=== PATIENT | male | born 1935 | race Caucasian/White ===

== ENCOUNTER 2017-10-19 04:09 | Observation (INO) | payer OTHER ==
[2017-10-19] VITALS (7 sets, daily range): BP systolic 169–203; BP diastolic 82–95; PULSE 65–68; TEMP 36.5–36.7; O2SAT 95–98; Ht 180.3 cm; Wt 98.4 kg
[~2017-10-19] VITALS: Ht 180.3 cm; Wt 98.4 kg
[~2017-10-19 04:09] MED LIST: ASPI81TA28 PO; PANT40TA PO; RANI150T85 PO; VALS160T58 PO
[2017-10-19] MEDS ORDERED: ASPIRIN 81 MG CHEW PO STA (04:18)
[2017-10-19] MEDS ORDERED: NITROGLYCERIN 0.4 MG SL PER TAB CHARGE SL PRN ×2 (04:30→05:45)
[2017-10-19 04:35] LABS: BASO % 0.4 %; BASO ABS # 0.03 K/uL (0-0.2); EOS % 5.2 %; EOS ABS # 0.42 K/uL (0-0.5); HEMATOCRIT 42.8 % (42-52); HEMOGLOBIN 14.7 g/dL (14.0-18.0); IG# 0.02 K/uL (0.00-0.02); LYMPH % 24.1 %; LYMPH ABS # 1.95 K/uL (1.2-3.4); MEAN CELL VOLUME 89.2 fL (80-100); MEAN CORPUSCULAR HEMOGLOBIN 30.6 pg (25-34); MEAN CORPUSCULAR HGB CONC 34.3 g/dl (32-36); MONO % 7.4 %; NEUT % 62.7 %; NEUT ABS # 5.08 K/uL (1.4-6.5); PLATELET COUNT 203 K/uL (130-400); RED CELL DISTRIBUTION WIDTH CV 12.9 % (11.5-14.5)
--- NOTE | 2017-10-19 04:38 | EMERGENCY ROOM VISIT NOTE ---
History Report prepared by Eliezer: Faith Juan Under the Supervision of: Dr. Pamela Carrillo M.D. First contact with patient: 04:12 Chief Complaint: CHEST PAIN Stated Complaint: CHEST PAIN History of Present Illness The patient is an 82 year old male who presents to the Emergency Room with complaints of persistent left side chest pain since 214 this morning. He states that the chest pain woke him up he denies pain radiating to his jaw, neck , or arms. He took his blood pressure medication at 2100 last night. He had a grilled chicken salad for dinner at a restaurant last night. He states that he had a cookie. He had two baby Aspirin before coming to the ED. He states the pain is tolerable. He denies any history of IN. He has a family history of CAD. Per , the patient's sister had an IN. She states she is five years younger than the patient. She reports they gave the sister NTG and she stopped breathing due to an adverse reaction. He denies any history of smoking. He denies any history of DM, though he states that his blood glucose has been elevated. Per , the patient's fasting glucose was 114. He denies any shortness of breath or sweating. He has a history of bladder cancer, vocal cord cancer, CKD, melanoma, HTN, glucose intolerance, and GERD. Source of History: patient, spouse/significant other Onset: 214 this morning Position: chest Symptom Intensity: tolerable Timing: other (persistent) Associated Symptoms: No diaphoresis (no sweating), No SOB Review of Systems See HPI for pertinent positives & negatives. A total of 10 systems reviewed and were otherwise negative. Past Medical & Surgical Medical Problems: (1) Bladder cancer (2) Chest pain in adult (3) CKD (chronic kidney disease) (4) GERD (gastroesophageal reflux disease) (5) Glucose intolerance (6) HTN (hypertension) (7) Melanoma (8) UTI (urinary tract infection) (9) Vocal cord cancer Family History Heart disease Social History Smoking Status: Never Smoker Smokeless Tobacco Use: No Drug Use: none Marital Status: Housing Status: lives with significant other Occupation Status: retired Current/Historical Medications Scheduled Aspirin (Aspirin Ec), 81 MG PO DAILY Pantoprazole (Protonix), 40 MG PO DAILY Ranitidine (Zantac), 150 MG PO DAILY Valsartan/Hctz (Diovan Hct 160MG/12.5MG), 1 TAB PO DAILY Allergies Coded Allergies: BEE STING (Unverified Allergy, Unknown, ANAPHYLAXIS, 10/19/17) Penicillins (Unverified Allergy, Unknown, HIVES, 10/19/17) Physical Exam Vital Signs Date Time Temp Pulse Resp B/P (MAP) Pulse Ox O2 Delivery O2 Flow Rate FiO2 10/19/17 06:00 70 16 161/80 96 Room Air 10/19/17 05:30 68 16 149/84 96 Room Air 10/19/17 04:55 67 18 153/86 94 Room Air 10/19/17 04:40 78 16 119/73 95 Room Air 10/19/17 04:37 84 16 118/80 94 10/19/17 04:32 74 20 176/97 94 Room Air 10/19/17 04:20 73 10/19/17 04:13 37.0 78 19 217/126 96 Room Air Physical Exam Vital signs reviewed. General: Well-appearing, in no significant distress. HEENT: No scleral icterus, PERRLA, neck supple. Atraumatic. Cardiovascular: Regular rate and rhythm, no extra sounds. Pulmonary: Clear to auscultation bilaterally, normal work of breathing. Abdomen: Soft, nontender, nondistended, positive bowel sounds. Musculoskeletal: Atraumatic, no peripheral edema. Neurologic: Patient awake alert and oriented x 3 Skin: Warm, dry, no rash Medical Decision & Procedures ER Provider Diagnostic Interpretation: Radiology results as stated below per my review and interpretation: CHEST XR: No focal infiltrate. No lung consolidation. No failure. Laboratory Results 10/19/17 04:15 Red Blood Count 4.80, Mean Corpuscular Volume 89.2, Mean Corpuscular Hemoglobin 30.6, Mean Corpuscular Hemoglobin Concent 34.3, Mean Platelet Volume 10.0, Neutrophils (%) (Auto) 62.7, Lymphocytes (%) (Auto) 24.1, Monocytes (%) (Auto) 7.4, Eosinophils (%) (Auto) 5.2, Basophils (%) (Auto) 0.4, Neutrophils # (Auto) 5.08, Lymphocytes # (Auto) 1.95, Monocytes # (Auto) 0.60, Eosinophils # (Auto) 0.42, Basophils # (Auto) 0.03 10/19/17 04:15 Test 10/19/17 04:15 10/19/17 04:30 White Blood Count 8.10 K/uL (4.8-10.8) Red Blood Count 4.80 M/uL (4.7-6.1) Hemoglobin 14.7 g/dL (14.0-18.0) Hematocrit 42.8 % (42-52) Mean Corpuscular Volume 89.2 fL (80-100) Mean Corpuscular Hemoglobin 30.6 pg (25-34) Mean Corpuscular Hemoglobin Concent 34.3 g/dl (32-36) Platelet Count 203 K/uL (130-400) Mean Platelet Volume 10.0 fL (7.4-10.4) Neutrophils (%) (Auto) 62.7 % Lymphocytes (%) (Auto) 24.1 % Monocytes (%) (Auto) 7.4 % Eosinophils (%) (Auto) 5.2 % Basophils (%) (Auto) 0.4 % Neutrophils # (Auto) 5.08 K/uL (1.4-6.5) Lymphocytes # (Auto) 1.95 K/uL (1.2-3.4) Monocytes # (Auto) 0.60 K/uL (0.11-0.59) Eosinophils # (Auto) 0.42 K/uL (0-0.5) Basophils # (Auto) 0.03 K/uL (0-0.2) RDW Standard Deviation 42.0 fL (36.4-46.3) RDW Coefficient of Variation 12.9 % (11.5-14.5) Immature Granulocyte % (Auto) 0.2 % Immature Granulocyte # (Auto) 0.02 K/uL (0.00-0.02) Prothrombin Time 11.0 SECONDS (9.0-12.0) Prothromb Time International Ratio 1.0 (0.9-1.1) Activated Partial Thromboplast Time 24.7 SECONDS (21.0-31.0) Partial Thromboplastin Ratio 1.0 Anion Gap 6.0 mmol/L (3-11) Est Creatinine Clear Calc Drug Dose 52.1 ml/min Estimated GFR () 56.8 Estimated GFR (Non- 49.0 BUN/Creatinine Ratio 16.4 (10-20) Calcium Level 8.3 mg/dl (8.5-10.1) Total Bilirubin 0.5 mg/dl (0.2-1) Direct Bilirubin 0.1 mg/dl (0-0.2) Aspartate Amino Transf (AST/SGOT) 17 U/L (15-37) Alanine Aminotransferase (ALT/SGPT) 23 U/L (12-78) Alkaline Phosphatase 90 U/L (45-117) Troponin I 0.047 ng/ml (0-0.045) Total Protein 6.8 gm/dl (6.4-8.2) Albumin 3.7 gm/dl (3.4-5.0) Bedside Troponin I 0.040 ng/ml (0-0.045) Laboratory results per my review. Medications Administered Medications (Trade) Dose Ordered Sig/Jessie Route Start Time Stop Time Status Last Admin Dose Admin Aspirin (Aspirin Chew) 324 mg NOW STAT PO 10/19/17 04:18 10/19/17 04:19 DC 10/19/17 04:31 162 MG Nitroglycerin (Nitrostat Tab) 0.4 mg Q5M PRN SL 10/19/17 04:30 11/18/17 04:29 10/19/17 04:32 0.4 MG Nitroglycerin (Nitroglycerin 2% Oint) 0.5 inch NOW STAT EXT 10/19/17 04:41 10/19/17 04:43 DC 10/19/17 04:48 0.5 INCH Hydralazine HCl (HydrALAZINE INJ) 5 mg NOW STAT IV. 10/19/17 05:35 10/19/17 05:36 DC 10/19/17 05:49 5 MG ECG Per My Interpretation Indication: chest pain Rate (beats per minute): 81 Rhythm: sinus rhythm Findings: 1st degree AV block, Q waves (Anterior), no acute ischemic change, left axis deviation, no ectopy, other (Previous septal infarct ) ED Course 0418: Past medical records reviewed. The patient was evaluated in room A2. A complete history and physical examination was performed. 0418: Ordered Aspirin 324 mg PO 0430: Ordered Nitroglycerin 0.4 mg SL 0441: Ordered Nitroglycerin 0.5 inch EXT 0533: I reassessed the patient at this time. He is feeling better and resting comfortably. I discussed the results and treatment plan with the patient. I answered all pertaining questions that he had. He expressed understanding and verbalized agreement. The patient will be further evaluated. 0535: Ordered Hydralazine HCl 5 mg IV 0545: I spoke with MACHELLE Flores hospitalist. We discussed the patient's case. The patient will be evaluated by the [facility] for further management. Medical Decision Differential diagnoses includes acute coronary syndrome, pulmonary embolus, aortic dissection, musculoskeletal pain, pneumonia, pleural effusion, pneumothorax, gastritis, peptic ulcer disease. This patient was evaluated and appeared to be in no significant distress. Patient complained of left-sided pain that sometimes increases in intensity. There is no radiation of the pain at this time. Patient is noted to be markedly hypertensive. He was given aspirin 162 mg p.o. as he had taken 2 baby aspirin prior to arrival. He was given a sublingual nitroglycerin with significant improvement in his blood pressure. 0.5 inches of nitroglycerin paste was applied to the anterior chest wall. EKG reveals Q waves but no evidence of acute ischemia. Shortly thereafter the patient's blood pressure began to creep back up. He was given 5 mg of IV hydralazine. Nursing staff was advised to remove the nitroglycerin paste if the blood pressure falls below 100 systolic. Chest x-ray was obtained and is clear to my interpretation. Patient's troponin is 0.047. Patient was educated to my findings. I recommended hospitalization for further management. Patient is aware of the plan and agrees. Medication Reconcilliation Current Medication List: was personally reviewed by me Blood Pressure Screening Patient's blood pressure: Elevated blood pressure monitored by hospitalist Consults Time Called: 0540 Consulting Physician: MACHELLE Flores hospitalist I spoke with MACHELLE Flores hospitalist. We discussed the patient's case. The patient will be evaluated by the [facility] for further management. Impression Primary Impression: Elevated troponin Additional Impressions: Chest pain HTN (hypertension) Scribe Attestation The scribe's documentation has been prepared under my direction and personally reviewed by me in its entirety. I confirm that the note above accurately reflects all work, treatment, procedures, and medical decision making performed by me. Departure Information Dispostion Being Evaluated By Hospitalist Referrals No Doctor, Assigned (PCP) Patient Instructions My [facility] Problem Qualifiers
[2017-10-19] MEDS ORDERED: NITROGLYCERIN 2% OINTMENT 30GM TUBE EXT STA (04:41)
[2017-10-19 05:01] LABS: ALBUMIN 3.7 gm/dl (3.4-5.0); CALCIUM 8.3 mg/dl (8.5-10.1); CREATININE 1.34 mg/dl (0.60-1.40); POTASSIUM 4.1 mmol/L (3.5-5.1)
[2017-10-19 05:11] LABS: TOTAL PROTEIN 6.8 gm/dl (6.4-8.2)
[2017-10-19] MEDS ORDERED: HydrALAZINE HCL 20 MG/ML VIAL IV. STA (05:35)
--- NOTE | 2017-10-19 05:44 | History and Physical ---
History & Physical Date & Time of Service: Oct 19, 2017 at 05:38 Chief Complaint: Chest Pain Primary Care Physician: No Doctor, Assigned History of Present Illness Source: patient, hospital records This is an 80-year-old male with a history of bladder CA, vocal cord CA, CKD II- III, cystectomy and ileal conduit. The pt woke from sleep with central CP. He describes the pain as moderate and denies radiation, SOB, nausea/vomiting, diaphoresis. He denies a history of a previous WA, however, he may have had nonocclusive CAD on a catheterization over 5 years ago. Initial POC trop is elevated - lab confirmation is borderline. There are no acute ischemic changes on EKG. SBP was elevated at 200 on arrival to the ER. Past Medical/Surgical History PAST MEDICAL HISTORY: 1. Bladder CA with 3 total surgeries including cystectomy and ileal conduit ultimately. He had radiation therapy but no chemotherapy. 2. The patient states that in 2013, he was admitted 5 times 4 recurrent UTIs, but has not had issues since then. 3. Vocal cord cancer. The patient had a resection followed by radiation but no chemotherapy. 4. Melanoma on his scalp resected with Mohs surgery. 5. CKD II-III 6. Hypertension. 7. Glucose intolerance. 8. GERD. PAST SURGICAL HISTORY: 1. Appendectomy. 2. Hernia repair x 5. 3. Cholecystectomy. 4. He has had a total of 5 eye surgeries including cataracts and periorbital muscle surgery. 5. Bladder resection and cystectomy as above. Family History Heart disease Both parents at an advanced age - cause not known. Father had a history of CAD/WA. 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[facility] - visiting his cabin in the [facility] Smoking Status: Never Smoker Smokeless Tobacco Use: No Drug Use: none Marital Status: Occupational Status: retired Allergies Coded Allergies: BEE STING (Unverified Allergy, Unknown, ANAPHYLAXIS, 10/19/17) Penicillins (Unverified Allergy, Unknown, HIVES, 10/19/17) Home Medications Scheduled Aspirin (Aspirin Ec), 81 MG PO DAILY Pantoprazole (Protonix), 40 MG PO DAILY Ranitidine (Zantac), 150 MG PO DAILY Valsartan/Hctz (Diovan Hct 160MG/12.5MG), 1 TAB PO DAILY Review of Systems Constitutional: No fever, No chills, No sweats Eyes: No worsening of vision ENT: No hearing loss, No unusual epistaxis, No nasal symptoms Respiratory: No cough, No sputum, No wheezing Cardiovascular: + chest pain, No orthopnea, No PND Abdomen: No pain, No nausea, No vomiting Musculoskeletal: No joint pain Genitourinary - Male: No hematuria, No dysuria Neurologic: No memory loss, No paralysis, No weakness Psychiatric: No depression symptoms Endocrine: No fatigue Hematologic / Lymphatic: No abnormal bleeding/bruising Integumentary: No rash Allergic / Immunologic: No environmental allergies Physical Exam Vital Signs Date Time Temp Pulse Resp B/P (MAP) Pulse Ox O2 Delivery O2 Flow Rate FiO2 10/19/17 04:55 67 18 153/86 94 Room Air 10/19/17 04:40 78 16 119/73 95 Room Air 10/19/17 04:37 84 16 118/80 94 10/19/17 04:32 74 20 176/97 94 Room Air 10/19/17 04:20 73 10/19/17 04:13 37.0 78 19 217/126 96 Room Air General Appearance: WD/WN, no apparent distress Head: normocephalic Eyes: normal inspection ENT: normal ENT inspection, pharynx normal, + pertinent finding (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 ) Neck: supple, no JVD Respiratory/Chest: chest non-tender, lungs clear, normal breath sounds Cardiovascular: regular rate, rhythm, no edema, no gallop Abdomen/GI: normal bowel sounds, non tender, soft Back: normal inspection, no CVA tenderness Extremities/Musculoskelatal: normal inspection, no calf tenderness, normal capillary refill Neurologic/Psych: high court justice II-XII nml as tested, no motor/sensory deficits, alert, oriented x 3 Skin: normal color Diagnostics Laboratory Results Results Past 24 Hours Test 10/19/17 04:15 10/19/17 04:30 Range/Units White Blood Count 8.10 4.8-10.8 K/uL Red Blood Count 4.80 4.7-6.1 M/uL Hemoglobin 14.7 14.0-18.0 g/dL Hematocrit 42.8 42-52 % Mean Corpuscular Volume 89.2 80-100 fL Mean Corpuscular Hemoglobin 30.6 25-34 pg Mean Corpuscular Hemoglobin Concent 34.3 32-36 g/dl Platelet Count 203 130-400 K/uL Mean Platelet Volume 10.0 7.4-10.4 fL Neutrophils (%) (Auto) 62.7 % Lymphocytes (%) (Auto) 24.1 % Monocytes (%) (Auto) 7.4 % Eosinophils (%) (Auto) 5.2 % Basophils (%) (Auto) 0.4 % Neutrophils # (Auto) 5.08 1.4-6.5 K/uL Lymphocytes # (Auto) 1.95 1.2-3.4 K/uL Monocytes # (Auto) 0.60 0.11-0.59 K/uL Eosinophils # (Auto) 0.42 0-0.5 K/uL Basophils # (Auto) 0.03 0-0.2 K/uL RDW Standard Deviation 42.0 36.4-46.3 fL RDW Coefficient of Variation 12.9 11.5-14.5 % Immature Granulocyte % (Auto) 0.2 % Immature Granulocyte # (Auto) 0.02 0.00-0.02 K/uL Sodium Level 142 136-145 mmol/L Potassium Level 4.1 3.5-5.1 mmol/L Chloride Level 108 98-107 mmol/L Carbon Dioxide Level 28 21-32 mmol/L Anion Gap 6.0 3-11 mmol/L Blood Urea Nitrogen 22 7-18 mg/dl Creatinine 1.34 0.60-1.40 mg/dl Est Creatinine Clear Calc Drug Dose 52.1 ml/min Estimated GFR () 56.8 Estimated GFR (Non- 49.0 BUN/Creatinine Ratio 16.4 10-20 Random Glucose 121 70-99 mg/dl Calcium Level 8.3 8.5-10.1 mg/dl Total Bilirubin 0.5 0.2-1 mg/dl Direct Bilirubin 0.1 0-0.2 mg/dl Aspartate Amino Transf (AST/SGOT) 17 15-37 U/L Alanine Aminotransferase (ALT/SGPT) 23 12-78 U/L Alkaline Phosphatase 90 45-117 U/L Troponin I 0.047 0-0.045 ng/ml Total Protein 6.8 6.4-8.2 gm/dl Albumin 3.7 3.4-5.0 gm/dl Bedside Troponin I 0.040 0-0.045 ng/ml EKG Sinus, 1st degree AV - ant Q wvs - no ST elevation or depressions Impression Assessment and Plan This is an 80-year-old male with a history of bladder CA, vocal cord CA, CKD II- III, cystectomy and ileal conduit. The pt woke from sleep with central CP. He describes the pain as moderate and denies radiation, SOB, nausea/vomiting, diaphoresis. He denies a history of a previous WA, however, he may have had nonocclusive CAD on a catheterization over 5 years ago. Initial POC trop is elevated - lab confirmation is borderline. There are no acute ischemic changes on EKG. SBP was elevated at 200 on arrival to the ER. 1) CP - borderline trop. The pt will be fully anticoagulated and placed on ASA , a Statin and a B ishmael. We have ordered an AM echo and consulted cardiology. 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 Improved with IV Labetalol in ER. We have continued his Valsartan/HCTZ and have added TID Metoprolol 3) CKD - renal function is at baseline. Full code - Heparin prophylaxis Total time for this admit including review of labs, meds, imaging, records - discussion with pt and ER attending - 35 min Resuscitation Status VTE Prophylaxis Will order VTE Prophylaxis: Yes
[2017-10-19] MEDS ORDERED: MoRPHine SULFATE 2 MG/ML CARP IV PRN (05:45)
[2017-10-19] MEDS ORDERED: MAGNESIUM HYDROXIDE SUSP 30 ML UDC PO PRN (05:45)
[2017-10-19] MEDS ORDERED: ONDANSETRON INJ 2 MG/ML 2 ML VIAL IV PRN (05:45)
[2017-10-19] MEDS ORDERED: ACETAMINOPHEN 325 MG TAB PO PRN (05:45)
[2017-10-19] MEDS ORDERED: ALUMINUM/MAGNESIUM/SIMETH (MAALOX MAX) 30 ML UDC PO PRN (05:45)
[2017-10-19] MEDS ORDERED: HEPARIN 25000 UNIT/500 ML D5W ONE (05:58)
[2017-10-19] MEDS ORDERED: HEPARIN SOD 5000 UNIT/0.5 ML CARP ONE (05:58)
[2017-10-19 06:14] LABS: PTT PATIENT 24.7 SECONDS (21.0-31.0)
--- NOTE | 2017-10-19 06:39 | DIAGNOSTIC IMAGING REPORT ---
CHEST ONE VIEW PORTABLE CLINICAL HISTORY: Left-sided chest pain. COMPARISON STUDY: Chest radiograph February 24, 2016. FINDINGS: A calcified 7 mm right upper lung nodule is noted. This is unchanged and represents a granuloma. No pneumothorax or pleural effusion is present. Minimal left basilar opacity favors atelectasis or scarring. There is no consolidation to suggest pneumonia and is no evidence for pulmonary edema. Cardiomediastinal silhouette is unremarkable. IMPRESSION: No acute cardiopulmonary findings. Electronically signed by: Junaid Cee M.D. 10/19/2017 6:38 AM Dictated Date/Time: 10/19/2017 6:37 AM
[2017-10-19] MEDS ORDERED: IV FLUIDS COMPLETED PRN (06:45)
[2017-10-19] MEDS ORDERED: HEPARIN 25,000 UNIT/500ML D5W 500 ML IV SCH (07:15)
[2017-10-19 07:28] LABS: HEMATOCRIT 42.1 % (42-52); HEMOGLOBIN 14.9 g/dL (14.0-18.0); MEAN CELL VOLUME 88.4 fL (80-100); MEAN CORPUSCULAR HEMOGLOBIN 31.3 pg (25-34); MEAN CORPUSCULAR HGB CONC 35.4 g/dl (32-36); MEAN PLATELET VOLUME 10.5 fL (7.4-10.4); PLATELET COUNT 201 K/uL (130-400); RED CELL DISTRIBUTION WIDTH CV 12.8 % (11.5-14.5); RED CELL DISTRIBUTION WIDTH SD 41.1 fL (36.4-46.3); WHITE BLOOD COUNT 7.54 K/uL (4.8-10.8)
[2017-10-19 07:52] LABS: INR 1.1 (0.9-1.1)
[2017-10-19 08:06] LABS: PTT PATIENT 171.8 SECONDS (21.0-31.0)
[2017-10-19] MEDS ORDERED: HYDROCHLOROTHIAZIDE 25 MG TAB PO SCH (09:00)
[2017-10-19] MEDS ORDERED: ASPIRIN 81 MG ECTAB PO SCH (09:00)
[2017-10-19] MEDS ORDERED: VALSARTAN 80 MG TAB PO SCH (09:00)
[2017-10-19] MEDS ORDERED: METOPROLOL TARTRATE 25 MG TAB PO SCH (09:00)
[2017-10-19] MEDS ORDERED: RANITIDINE HCL 150 MG TAB PO SCH (09:00)
[2017-10-19] MEDS ORDERED: ATORVASTATIN 20 MG TAB PO SCH (09:00)
[2017-10-19] MEDS ORDERED: PANTOprazole SOD 40 MG TAB PO SCH (09:00)
[2017-10-19] MEDS ORDERED: VALSARTAN/HCTZ 160/12.5 MG TAB PO SCH (09:00)
[2017-10-19 09:45] LABS: PTT PATIENT 92.4 SECONDS (21.0-31.0)
--- NOTE | 2017-10-19 10:11 | ECHOCARDIOGRAM REPORT ---
*NOTICE TO RECEIVING DEMOCRAT AGENCY This information is strictly Confidential and protected under [place] law. [place] law prohibits you from making any further disclosure of this information unless further disclosure is expressly permitted by the written consent of the person to whom it pertains or is authorized by law. A general authorization for the release of medical or other information is not sufficient for this purpose. Hospital accepts no responsibility if the information is made available to any other person, INCLUDING THE PATIENT. Interpretation Summary * Name: BENITO GARVIN Study Date: 10/19/2017 06:39 AM BP: 203/92 mmHg * Patient Location: C.2T\S\E219\S\1 HR: 73 * : 1935 (M/d/yyyy) Gender: Male Height: 72 in * Age: 82 yrs Ethnicity: CA Weight: 220 lb * Ordering Physician: Lavon Horn * Referring Physician: Self, Referred * Performed By: Lashay Quezada RCS * * Reason For Study: ELEVATED TROPONIN * BSA: 2.2 m2 * -- Conclusions -- * Left ventricular systolic function is normal. * No regional wall motion abnormalities noted. * Ejection Fraction = 55-60%. * There is mild concentric left ventricular hypertrophy. * Grade I diastolic dysfunction, (abnormal relaxation pattern). * No significant valvular pathology. Procedure Details * A complete two-dimensional transthoracic echocardiogram was performed (2D, M-mode, Doppler and color flow Doppler). * The study was technically difficult. * A contrast injection of Definity was performed to improve assessment of LV function. * Contrast was injected into an intravenous site in the left arm. * One vial of Definity ultrasound contrast was diluted in normal saline to a total volume of 10 ml. A total of '3' ml of solution was administered during imaging. * Lot # [id number] of Definity utilized for procedure. * Expiration date OCT 08. * The attending nurse who injected the contrast agent was ABHILASH GRANDA, RN. Left Ventricle * The left ventricle is normal in size. * There is mild concentric left ventricular hypertrophy. * Left ventricular systolic function is normal. * Ejection Fraction = 55-60%. * No regional wall motion abnormalities noted. Right Ventricle * The right ventricle is not well visualized. * The right ventricular systolic function is normal as assessed by tricuspid annular plane systolic excursion (TAPSE) (normal >1.5 cm). Atria * The left atrium is mildly dilated. * Right atrium not well visualized. * There is no evidence of atrial septal defect, but resolution does not allow assessment for a patent foramen ovale. Mitral Valve * The mitral valve anatomy is normal. * There is no mitral valve stenosis. * Significant mitral regurgitation is absent. Tricuspid Valve * The tricuspid valve is not well visualized, but is grossly normal. * There is no tricuspid stenosis. * Significant tricuspid regurgitation is absent. Aortic Valve * The aortic valve is trileaflet. * The aortic valve opens well. * No hemodynamically significant valvular aortic stenosis. * There is no significant aortic regurgitation. Pulmonic Valve * The pulmonary valve is not well seen, but the Doppler examination is normal without significant regurgitation or stenosis. Great Vessels * The aortic root is normal size. * The pulmonary is not well visualized. Pericardium/Pleural * There is no pericardial effusion. Great Vessels * IVC not well visualized. Left Ventricular Diastolic Function * Grade I diastolic dysfunction, (abnormal relaxation pattern). MMode 2D Measurements and Calculations IVSd 1.9 cm IVSs 2.1 cm LVIDd 4.2 cm LVIDs 3.2 cm LVPWd 1.4 cm LVPWs 1.5 cm IVS/LVPW 1.4 FS 23.8 % EDV(Teich) 78.4 ml ESV(Teich) 40.8 ml EF(Teich) 47.9 % EDV(cubed) 73.9 ml ESV(cubed) 32.6 ml EF(cubed) 55.8 % % IVS thick 8.0 % % LVPW thick 7.1 % LV mass(C)d 294.6 grams LV mass(C)dI 132.8 grams/m\S\2 LV mass(C)s 233.4 grams LV mass(C)sI 105.2 grams/m\S\2 SV(Teich) 37.6 ml SI(Teich) 16.9 ml/m\S\2 SV(cubed) 41.2 ml SI(cubed) 18.6 ml/m\S\2 Ao root diam 3.4 cm Ao root area 9.3 cm\S\2 ACS 1.7 cm LA dimension 3.4 cm LA/Ao 0.97 LVOT diam 2.0 cm LVOT area 3.2 cm\S\2 LVAd ap4 26.9 cm\S\2 LVLd ap4 6.9 cm EDV(MOD-sp4) 85.9 ml EDV(sp4-el) 88.8 ml LVAs ap4 19.5 cm\S\2 LVLs ap4 6.0 cm ESV(MOD-sp4) 52.1 ml ESV(sp4-el) 53.3 ml EF(MOD-sp4) 39.4 % EF(sp4-el) 40.0 % LVAd ap2 23.4 cm\S\2 LVLd ap2 5.9 cm EDV(MOD-sp2) 75.6 ml EDV(sp2-el) 78.9 ml LVAs ap2 15.7 cm\S\2 LVLs ap2 5.0 cm ESV(MOD-sp2) 40.3 ml ESV(sp2-el) 41.5 ml EF(MOD-sp2) 46.7 % EF(sp2-el) 47.4 % LVLd %diff -16.80 % EDV(MOD-bp) 84.7 ml LVLs %diff -20.19 % ESV(MOD-bp) 50.6 ml EF(MOD-bp) 40.3 % SV(MOD-sp4) 33.8 ml SI(MOD-sp4) 15.2 ml/m\S\2 SV(MOD-sp2) 35.3 ml SI(MOD-sp2) 15.9 ml/m\S\2 SV(MOD-bp) 34.1 ml SI(MOD-bp) 15.4 ml/m\S\2 SV(sp4-el) 35.5 ml SI(sp4-el) 16.0 ml/m\S\2 SV(sp2-el) 37.4 ml SI(sp2-el) 16.9 ml/m\S\2 Doppler Measurements and Calculations MV E max chris 66.9 cm/sec MV A max chris 85.9 cm/sec MV E/A 0.78 MV P1/2t max chris 71.8 cm/sec MV P1/2t 80.4 msec MVA(P1/2t) 2.7 cm\S\2 MV dec slope 261.2 cm/sec\S\2 MV dec time 0.24 sec PA V2 max 153.4 cm/sec PA max PG 9.4 mmHg
[2017-10-19] MEDS ORDERED: NURSING VERBAL MED ORDER ONE (10:30)
[2017-10-19] MEDS ORDERED: DOBUTamine HCL 12.5 MG/ML 20 ML VIAL ONE (10:59)
[2017-10-19] MEDS ORDERED: METOPROLOL TARTRATE 1 MG/ML VIAL ONE (11:00)
[2017-10-19] MEDS ORDERED: ATROPINE SULFATE 0.1 MG/ML 5ML SYR ONE (11:00)
--- NOTE | 2017-10-19 12:31 | Discharge Instructions ---
Discharge Instructions Date of Service Oct 19, 2017. Admission Reason for Admission: Chest Pain In Adult, Elevated Troponin Discharge Discharge Diagnosis / Problem: chest pain / elevated blood pressure (see below) Discharge Goals Goal(s): Diagnostic testing, Therapeutic intervention Activity Recommendations Activity Limitations: resume your previous activity (take it easy over the next week until you've seen a number of blood pressure readings and followed up with your regular doctor) . Instructions / Follow-Up Instructions / Follow-Up chest pain - --fortunately the "bad and scary" things were ruled out - and it appears that the pain was likely nonspecific (i always hate to leave things undefined - we' re good at ruling out the serious, but the rest are often rib/muscle, reflux/ indigestion when we find with hindsight that the serious was ruled out). --it is also possible that the blood pressure spiked, putting strain on your heart, causing the whole scenario - but as we discussed, it is very "chicken or the egg" as far as blood pressure putting more strain on your heart causing pain , or pain raising your blood pressure. because overtreatment of blood pressure can cause significant problems (weakness, faints, falls, etc) and because it's clear you're not in immediate danger, it makes more sense to get to the bottom of the situation and then act, rather than acting first and "trying to figure it out on the fly" -in that respect, we'll be working on getting you in with your family doc by the end of the week - between now and then, check blood pressures at least 3 times a day, random times, under all sets of circumstances. in this way, your PCP will be able to see overall averages and trends, and can then help figure out if we need to adjust medications or not (if your pressures all are reasonable, then it would be more clear that the pain spiked the blood pressure , and not the other way around) Current Hospital Diet Patient's current hospital diet: AHA Diet (Heart Healthy) Discharge Diet Recommended Diet: AHA Diet (Heart Healthy) Pending Studies Studies pending at discharge: no Medical Emergencies . Who to Call and When: Medical Emergencies: If at any time you feel your situation is an emergency, please call 911 immediately. . Non-Emergent Contact Non-Emergency issues call your: Primary Care Provider . . "Provider Documentation" section prepared by Carlton Austin. .
--- NOTE | 2017-10-19 12:45 | CARDIOLOGY CONSULTATION ---
DATE OF CONSULTATION: 10/19/2017 PERTINENT HISTORY: Mr. Shaffer is an 82-year-old white male, admitted earlier today with a chest pain syndrome. This consultation was ordered to assist in his management. The patient claims he was in his usual state of health until approximately 2:00 a.m. when he was awakened from sound sleep with a left-sided chest discomfort. The patient explains that this had no associated nausea, vomiting, diaphoresis, or radiation of the discomfort. The discomfort lasted for at least 1 hour and then began to wax and wane. The patient presented to the Emergency Room and his symptoms resolved spontaneously. The patient has never experienced classic exertional angina pectoris. Denies exertional dyspnea, syncope, presyncope, PND, orthopnea, palpitations, lower extremity edema, and claudication. The patient did have a cardiac catheterization performed at [facility] in 2012. He was told that he had "no major blockages." Currently, the patient is resting comfortably in bed without complaints. PAST MEDICAL HISTORY: 1. Nonobstructive coronary artery disease - 2012. 2. Hypertension. 3. Mild LVH. 4. Hyperglycemia. 5. Chronic renal failure. 6. GERD. 7. History of bladder carcinoma - 1986. 8. Cystectomy. 9. Ileal conduit. 10. 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 11. Scalp melanoma. 12. Appendectomy. 13. Inguinal hernia repair x5. 14. Cholecystectomy. MEDICATIONS: 1. Heparin drip. 2. Metoprolol tartrate 12.5 mg t.i.d. 3. Aspirin 81 mg per day. 4. Lipitor 20 mg at bedtime. 5. Diovan 160 mg daily. 6. Hydrochlorothiazide 12.5 mg daily. 7. Protonix 40 mg per day. 8. Zantac 150 mg daily. ALLERGIES: 1. PENICILLIN. 2. BEE STING. SOCIAL HISTORY: The patient is and lives with his in the [facility]. Owns an appliance store. Has a cabin in the [place] area. No tobacco, rare alcohol. FAMILY HISTORY: Father at age 92 from "old age." Did have bypass surgery performed in his 80s. Mother at age 88 from "old age." A sister had myocardial infarction at age 77. REVIEW OF SYSTEMS: A 10-point review of systems was negative except as described above. PHYSICAL EXAMINATION: GENERAL: This is a well-developed, well-nourished white male, in no acute distress. VITAL SIGNS: Blood pressure is 180/95 with regular pulse of 60. Respiratory rate is 18. The patient is afebrile at 36.5 degrees Celsius. Saturations 96% on room air. HEENT: Negative. NECK: Supple with full carotid upstrokes. No carotid bruits. Jugular venous pressure is flat at 90 degrees. There is no thyromegaly. CARDIOVASCULAR: Reveals a regular rhythm with normal S1, S2. Heart sounds are distant. No obvious murmurs. No S3 or S4. LUNGS: Clear without rales, rhonchi, or wheeze. ABDOMEN: Obese without bruits. EXTREMITIES: Reveal intact radial artery pulses bilaterally. There is no peripheral edema. LABORATORY DATA: CBC notes hemoglobin 14.9, hematocrit 42.1, white count 7.5, and platelet count 201,000. Electrolytes note a sodium of 142, potassium 4.1, chloride 108, bicarb 28, BUN 22, creatinine 1.34, glucose 121. Initial troponin was mildly elevated at 0.047 with followup values of 0.04 on 2 occasions. Chest x-ray shows no acute disease. EKG notes sinus rhythm with first-degree AV block and left axis deviation. IMPRESSION: Mr. Shaffer was admitted with a chest pain syndrome which has components typical and atypical of classic angina pectoris. Will proceed with a dobutamine stress echocardiogram. His echocardiogram notes normal systolic function and evidence of mild LVH. Suspect his minor troponin elevation could be related to a supply demand mismatch. Had significant hypertension on presentation with a blood pressure of 217/126. PLAN: 1. Discontinue heparin. 2. Dobutamine stress echocardiogram. 3. Further recommendations depending on results of his study. KATHY
--- NOTE | 2017-10-19 12:56 | DOBUTAMINE ECHO ---
*NOTICE TO RECEIVING [employer]Y This information is strictly Confidential and protected under [place] law. [place] law prohibits you from making any further disclosure of this information unless further disclosure is expressly permitted by the written consent of the person to whom it pertains or is authorized by law. A general authorization for the release of medical or other information is not sufficient for this purpose. Hospital accepts no responsibility if the information is made available to any other person, INCLUDING THE PATIENT. Interpretation Summary * Name: BENITO GARVIN Study Date: 10/19/2017 10:24 AM BP: 177/98 mmHg * Patient Location: .2T\S\E219\S\1 HR: 76 * : 1935 (M/d/yyyy) Gender: Male Height: 70 in * Age: 82 yrs Ethnicity: [place] Weight: 216 lb * Ordering Physician: Tulio Cho * Referring Physician: Self, Referred * Performed By: Zandra Walls RDCS * * Reason For Study: Chest Pain * BSA: 2.2 m2 * -- Conclusions -- * 1. Negative dobutamine stress echocardiogram for myocardial ischemia at 92% of the maximum predicted heart rate. * 2. No dobutamine induced chest pain. * 3. No EKG changes. * 4. Baseline echocardiogram notes normal left ventricular systolic function without wall motion abnormality. Procedure Details * DOBUTAMINE ECHO, CPT#45936 * The study was technically difficult with many images being suboptimal in quality. * A contrast injection of Definity was performed to improve assessment of LV function. * Contrast was injected into an intravenous site in the left arm. * One vial of Definity ultrasound contrast was diluted in normal saline to a total volume of 10 ml. A total of '5' ml of solution was administered during imaging. * Lot # [id number] of Definity utilized for procedure. * Expiration date 1APR19. * The attending nurse who injected the contrast agent was Dagoberto Oliveira RN. Left Ventricle * The left ventricle is normal in size. * Left ventricular systolic function is normal. * Resting wall motion: Normal. Stress wall motion: Appropriate increase in Left ventricular systolic function and decrease in cavity size. No stress induced segmental wall motion abnormalities. Stress Parameters * Baseline EKG notes sinus rhythm with first-degree AV block and a left axis deviation. * Stress ECG: No ST changes. No arrhythmias. * The stress portion of this study was personally supervised by the undersigned interpreting physician. * Rest heart rate was '76' BPM. * Rest blood pressure was '177/98' * Maximum heart rate achieved was 127 bpm. * Maximum heart rate was 92 % of maximum age-predicted heart rate. * Maximum blood pressure was '180/84' * Maximum Dobutamine infusion rate was '30' mcg/kg/min. * A total of 0.5 mg of intravenous Atropine was used to supplement Dobutamine for heart rate response. * Dobutamine infusion was terminated due to achieving target heart rate * A total of 5 mg of IV Metoprolol was administered to reverse Dobutamine-induced tachycardia.
--- NOTE | 2017-10-19 17:50 | Discharge Summary ---
Discharge Summary Date of Service Oct 19, 2017. Discharge Summary Admission Date: Oct 19, 2017 at 05:48 Discharge Date: Oct 19, 2017 Discharge Disposition: Home Principal Diagnosis: chest pain - nonspecific Problems/Secondary Diagnoses: (1) HTN (hypertension) Status: Chronic Procedures: resting echo: Interpretation Summary Name: BENITO SHAFFER Study Date: 10/19/2017 06:39 AM BP: 203/92 mmHg Patient Location: [facility]\S\[facility]\S\1 HR: 73 : 1935 (M/d/yyyy) Gender: Male Height: 72 in Age: 82 yrs Ethnicity: [place] Weight: 220 lb Ordering Physician: Lavon Horn Referring Physician: Self, Referred Performed By: Lashay Quezada RCS Reason For Study: ELEVATED TROPONIN BSA: 2.2 m2 -- Conclusions -- Left ventricular systolic function is normal. No regional wall motion abnormalities noted. Ejection Fraction = 55-60%. There is mild concentric left ventricular hypertrophy. Grade I diastolic dysfunction, (abnormal relaxation pattern). No significant valvular pathology. Procedure Details A complete two-dimensional transthoracic echocardiogram was performed (2D, M- mode, Doppler and color flow Doppler). The study was technically difficult. A contrast injection of Definity was performed to improve assessment of LV function. Contrast was injected into an intravenous site in the left arm. One vial of Definity ultrasound contrast was diluted in normal saline to a total volume of 10 ml. A total of '3' ml of solution was administered during imaging. Lot # [id number] of Definity utilized for procedure. Expiration date OCT 08. The attending nurse who injected the contrast agent was ABHILASH GRANDA, RN. Left Ventricle The left ventricle is normal in size. There is mild concentric left ventricular hypertrophy. Left ventricular systolic function is normal. Ejection Fraction = 55-60%. No regional wall motion abnormalities noted. Right Ventricle The right ventricle is not well visualized. The right ventricular systolic function is normal as assessed by tricuspid annular plane systolic excursion (TAPSE) (normal >1.5 cm). Atria The left atrium is mildly dilated. Right atrium not well visualized. There is no evidence of atrial septal defect, but resolution does not allow assessment for a patent foramen ovale. Mitral Valve The mitral valve anatomy is normal. There is no mitral valve stenosis. Significant mitral regurgitation is absent. Tricuspid Valve The tricuspid valve is not well visualized, but is grossly normal. There is no tricuspid stenosis. Significant tricuspid regurgitation is absent. Aortic Valve The aortic valve is trileaflet. The aortic valve opens well. No hemodynamically significant valvular aortic stenosis. There is no significant aortic regurgitation. Pulmonic Valve The pulmonary valve is not well seen, but the Doppler examination is normal without significant regurgitation or stenosis. Great Vessels The aortic root is normal size. The pulmonary is not well visualized. Pericardium/Pleural There is no pericardial effusion. Great Vessels IVC not well visualized. Left Ventricular Diastolic Function Grade I diastolic dysfunction, (abnormal relaxation pattern). Interpretation Summary * Name: BENITO SHAFFER Study Date: 10/19/2017 10:24 AM BP: 177/98 mmHg * Patient Location: [facility]\S\1 HR: 76 * : 1935 (M/d/yyyy) Gender: Male Height: 70 in * Age: 82 yrs Ethnicity: [place] Weight: 216 lb * Ordering Physician: Tulio Cho * Referring Physician: Self, Referred * Performed By: Zandra Walls RDCS * * Reason For Study: Chest Pain * BSA: 2.2 m2 * -- Conclusions -- * 1. Negative dobutamine stress echocardiogram for myocardial ischemia at 92% of the maximum predicted heart rate. * 2. No dobutamine induced chest pain. * 3. No EKG changes. * 4. Baseline echocardiogram notes normal left ventricular systolic function without wall motion abnormality. Procedure Details * DOBUTAMINE ECHO, CPT#84865 * The study was technically difficult with many images being suboptimal in quality. * A contrast injection of Definity was performed to improve assessment of LV function. * Contrast was injected into an intravenous site in the left arm. * One vial of Definity ultrasound contrast was diluted in normal saline to a total volume of 10 ml. A total of '5' ml of solution was administered during imaging. * Lot # [id number] of Definity utilized for procedure. * Expiration date 1APR19. * The attending nurse who injected the contrast agent was Dagoberto Oliveira RN. Left Ventricle * The left ventricle is normal in size. * Left ventricular systolic function is normal. * Resting wall motion: Normal. Stress wall motion: Appropriate increase in Left ventricular systolic function and decrease in cavity size. No stress induced segmental wall motion abnormalities. Stress Parameters * Baseline EKG notes sinus rhythm with first-degree AV block and a left axis deviation. * Stress ECG: No ST changes. No arrhythmias. * The stress portion of this study was personally supervised by the undersigned interpreting physician. * Rest heart rate was '76' BPM. * Rest blood pressure was '177/98' * Maximum heart rate achieved was 127 bpm. * Maximum heart rate was 92 % of maximum age-predicted heart rate. * Maximum blood pressure was '180/84' * Maximum Dobutamine infusion rate was '30' mcg/kg/min. * A total of 0.5 mg of intravenous Atropine was used to supplement Dobutamine for heart rate response. * Dobutamine infusion was terminated due to achieving target heart rate * A total of 5 mg of IV Metoprolol was administered to reverse Dobutamine- induced tachycardia. Created: Initialized: 10/19/17; 1256 <Electronically signed by Tulio Cho M.D.> Item Value Date Time Troponin I 0.047 ng/ml *H 10/19/17 1338 Last Resulted CBC 10/19/17 07:18 Last Resulted BMP 10/19/17 04:15 Consultations: IMPRESSION: Mr. Shaffer was admitted with a chest pain syndrome which has components typical and atypical of classic angina pectoris. Will proceed with a dobutamine stress echocardiogram. His echocardiogram notes normal systolic function and evidence of mild LVH. Suspect his minor troponin elevation could be related to a supply demand mismatch. Had significant hypertension on presentation with a blood pressure of 217/126. PLAN: 1. Discontinue heparin. 2. Dobutamine stress echocardiogram. 3. Further recommendations depending on results of his study. [id number] <Electronically signed by Tulio Cho M.D.> Medication Reconciliation Continued Medications: Aspirin (Aspirin Ec) 81 Mg Tab 81 MG PO DAILY Pantoprazole (Protonix) 40 Mg Tab 40 MG PO DAILY Ranitidine (Zantac) 150 Mg Tab 150 MG PO DAILY, TAB Valsartan/Hctz (Diovan Hct 160MG/12.5MG) 1 Tab Tab 1 TAB PO DAILY, TAB Discharge Exam Physical Exam: General Appearance: no apparent distress Eyes: EOMI ENT: hearing grossly normal Neck: trachea midline Respiratory/Chest: no respiratory distress, no accessory muscle use Extremities: normal inspection Neurologic/Psychiatric: bilingual medical receptionist II-XII nml as tested, alert, normal mood/affect Skin: normal color, warm/dry Hospital Course admitted with chest pain and borderline troponin -fortunately troponin did not trend - stayed basically entirely level -no s/s HI, no tachycardia/hypoxia or R heart strain making PE excessively unlikely as well w LVH strongly suspect troponin is a leak from thickened myocardium, possibly exacerbated by uncontrolled HTN - however, pt and astutely noted that his BP could be variable due to his discomfort yesterday and the stress of being in the hospital - and risk of iatrogenic harm in up-titrating BP meds in geriatric population has to be considered. since stress echo normal, nothing appearing urgent/ominous - safe to monitor BP aggressively as outpt and increase meds if BP truly warrants it -check BP 3-5 times per day randomly over the next few days, then f/u PCP at the end of the week to review numbers and adjust meds if need be pt/family appreciated this plan stable for home Total Time Spent: Less than 30 minutes This includes examination of the patient, discharge planning, medication reconciliation, and communication with other providers. Discharge Instructions Please refer to the electronic Patient Visit Report (Discharge Instructions) for additional information.
== END 2017-10-19 13:53 | disposition home or self-care (01) ==
LOC: C.EDB 04:11 → C.2T 05:48 → ENRESERV 05:58
PROVIDERS: ADMIT Internal Medicine; ATTEND Family Medicine
DX: R07.89 Other chest pain (principal); I12.9 Hypertensive chronic kidney disease with stage 1 through stage 4 chronic kidney disease, or unspecified chronic kidney disease; N18.9 Chronic kidney disease, unspecified; I25.10 Atherosclerotic heart disease of native coronary artery without angina pectoris; K21.9 Gastro-esophageal reflux disease without esophagitis; Z79.82 Long term (current) use of aspirin; Z85.51 Personal history of malignant neoplasm of bladder; Z85.820 Personal history of malignant melanoma of skin; Z90.49 Acquired absence of other specified parts of digestive tract; Z88.0 Allergy status to penicillin; Z91.030 Bee allergy status; Z90.6 Acquired absence of other parts of urinary tract